=== PATIENT | male | born 2000 | race Caucasian/White ===

== ENCOUNTER 2024-07-04 12:35 | Outpatient (CLI) | payer OTHER, SELFPAY ==
--- NOTE | ~2024-07-04 | MR_ITS ---
EXAMINATION: MR brain/brain stem wo/w con DATE: 07/04/2024 13:35 INDICATION: Right-sided headache. TECHNIQUE: Magnetic resonance imaging (MRI) of the brain and brainstem was performed without and with 20 mL MultiHance intravenous contrast. COMPARISON: None. FINDINGS: There is no intracranial hemorrhage, acute infarction, or abnormal intracranial mass lesion . The ventricles are normal in size. There is mild mucosal thickening in the ethmoid sinuses. The orb its are normal. The mastoid air cells are normal. IMPRESSION: 1. Normal brain. Reviewed, dictated and finalized at location A. O ANTENNA INSTALLER IMPRESSION: 1. Normal brain.
--- NOTE | ~2024-07-04 | US_ITS ---
EXAMINATION: US soft tissue UE RT, US soft tissue UE LT DATE: 07/04/2024 13:13 INDICATION: Localized swelling, mass or lump at the bilateral upper arms TECHNIQUE: Multiple grayscale and Doppler ultrasound images of the regions of the palpable abnormalit y at the lateral left upper arm and lateral right upper arm were obtained. COMPARISON: None FINDINGS: An 8 x 8 x 5 mm ovoid hyperechoic region within the superficial subcutaneous fat at the region of con cern in the left upper arm. This is without evident mass effect upon the immediately adjacent septate d pattern of the subcutaneous fat which would favor a focus of inflammation or lipoma over other vita d neoplasm. Similar 6 x 4 x 3 mm superficial subcutaneous region of increased echogenicity at the reg ion of concern at the right upper arm. No other abnormal masses or fluid collections identified. IMPRESSION: 1. Small ovoid regions of increased echogenicity without evident local mass effect located in the sup erficial subcutaneous fat at the region of concern measuring up to 8mm in maximal diameter on the lef t and 6 mm on the right. While nonspecific, the most likely etiologies would include focal inflammati on or scarring of otherwise normal fat and lipomas. Solid neoplasm considered unlikely however if the re is continued clinical concern could consider further evaluation with MRI or percutaneous ultrasoun d guided biopsy. Reviewed, dictated and finalized at location A. NISTRATION CLERK IMPRESSION: 1. Small ovoid regions of increased echogenicity without evident local mass eff ect located in the superficial subcutaneous fat at the region of concern measur ing up to 8mm in maximal diameter on the left and 6 mm on the right. While nons pecific, the most likely etiologies would include focal inflammation or scarrin g of otherwise normal fat and lipomas. Solid neoplasm considered unlikely howev er if there is continued clinical concern could consider further evaluation wit h MRI or percutaneous ultrasound guided biopsy.
== END 2024-07-04 12:36 | disposition home or self-care (01) ==
PROVIDERS: PCP Family Medicine; Visit Provider Student in an Organized Health Care Education/Training Program
DX: R22.30 Localized swelling, mass and lump, unspecified upper limb (principal); G44.52 New daily persistent headache (NDPH)
CPT/HCPCS: 70553; 76882; A9577